=== PATIENT | female | born 1950 | race Caucasian/White ===

== ENCOUNTER → 2025-05-01 | Outpatient (CLI) | payer OTHER | END | disposition home or self-care (01) | LOC: RAH 12:20 | PROVIDERS: ATTEND Family Medicine | DX: M81.0 Age-related osteoporosis without current pathological fracture (principal) | CPT/HCPCS: 77080 ==

== ENCOUNTER → 2025-05-10 | Outpatient (CLI) | payer OTHER ==
--- NOTE | 2025-05-11 00:16 | HMCIMG ---
EXAM: CT Cardiac calcium scoring. CLINICAL HISTORY: CAD screening. TECHNIQUE: Thin collimated axial CT cardiac images were obtained. A CT scan is done according to ALARA (As Low As Reasonably Achievable). CONTRAST: None. COMPARISON: None provided. FINDINGS: Calcium Score: VESSEL Number of lesions Volume mm3 Equi. Mass/mg Calcium score LM 0 00.00 --.-- 00.00 LAD 0 00.00 --.-- 00.00 LCX 3 15.6 --.-- 17.7 RCA 0 00.00 --.-- 00.00 Total 3 15.6 --.-- 17.7 IMPRESSION: The calcium score is 17.7. This places the patient just below 50th percentile in comparison to a group of patients asymptomatic for coronary artery disease with the same age and gender. This means that >50 % of females aged >74 have a calcium score that is higher than the patient's /[place]
== END | disposition home or self-care (01) ==
LOC: RAH 13:23 → EDUNIT# 15:30
PROVIDERS: ATTEND Family Medicine
DX: Z13.6 Encounter for screening for cardiovascular disorders (principal); I25.10 Atherosclerotic heart disease of native coronary artery without angina pectoris
CPT/HCPCS: 75571